=== PATIENT | female | born 1950 | race Caucasian/White ===

== ENCOUNTER 2016-05-31 10:46 | Emergency (ER) | payer MEDICARE ==
[2016-05-31 11:03] VITALS: TEMP 98.2; BMI 27.4
[2016-05-31] MEDS ORDERED: SODIUM CHLORIDE 0.9% 10 ML FLUSH FLUSH PRN (11:08)
[2016-05-31] MEDS ORDERED: NS 1,000 ML IV ONE (11:08)
--- NOTE | 2016-05-31 11:27 | DIRPT ---
CLINICAL DATA: Chest pain and difficulty breathing EXAM: PORTABLE CHEST 1 VIEW COMPARISON: 05/27/2016 FINDINGS: The cardiac shadow is stable. The left-sided pleural effusion has increased slightly in the interval and now lies within the major fissure. Old rib fractures are noted on the right. The right lung is clear. No other focal abnormality is noted. IMPRESSION: Increasing left-sided pleural effusion. Electronically Signed By: Yrn Hernadez M.D. On: 05/31/2016 11:25
[2016-05-31 11:35] LABS: MPV 7.4 fL (7.4-10.4)
[2016-05-31 11:44] LABS: BLOOD UREA NITROGEN 12 MG/DL (7-17); CALC CORRECTED 10.2 MG/DL (8.4-10.2); CALCIUM 9.6 MG/DL (8.4-10.2); CALCULATED OSMOLALITY 270 MOs/Kg (270-290); CHLORIDE 98 mEq/L (98-107); GLUCOSE 109 MG/DL (70-99); SODIUM LEVEL 140 mEq/L (137-146); TOTAL PROTEIN 7.6 G/DL (6.3-8.2)
[2016-05-31 11:47] LABS: ABG Draw Site Right Radial; ALLEN'S TEST PASS; TCO2 30.5 MMOL/L (23-27)
[2016-05-31 12:37] LABS: SEG NEUTROPHIL 72 % (45-76)
--- NOTE | 2016-05-31 12:39 | EDPRACDOC ---
- General Information Chief Complaint: Dyspnea/Resp distress Stated Complaint: RESP Time Seen by Provider: 05/31/16 11:29 Information Source: Patient Home Medications: Home Medications Albuterol/Ipratropium Neb [Duoneb] 3 ml NEB TID 06/06/15 Aspirin [Aspirin EC] 81 mg PO DAILY 06/06/15 Aspirin/Acetaminophen/Caffeine [Excedrin Extra Strength Tab 250/250/65mg] 1 - 2 tab PO Q4H PRN 06/06/15 Atenolol 25 mg PO DAILY 06/06/15 Atorvastatin Calcium [Lipitor] 5 mg PO QHS 06/06/15 Cholecalciferol (Vitamin D3) [Vitamin D3] 1,000 unit PO DAILY 06/06/15 Folic Acid 1 mg PO DAILY 06/06/15 Hydrocodone Bit/Acetaminophen [Hydrocodon-Acetaminophen 5-325] 1 tab PO TID PRN 06/06/15 Ipratropium/Albuterol Sulfate [Combivent Respimat] 2 puff INH RTQ6 06/06/15 Loperamide HCl [Imodium] 2 mg PO DIR PRN 06/06/15 Losartan Potassium 100 mg PO DAILY 06/06/15 Nitroglycerin [Nitrostat] 0.4 mg SL Q5M PRN 06/06/15 Hammond-3 Acid Ethyl Esters [Lovaza] 1 gm PO DAILY 06/06/15 Omeprazole [Prilosec] 20 mg PO DAILY 06/06/15 Tiotropium [place] [Spiriva] 18 mcg INH DAILY 06/06/15 Tussionex [Tussionex Oral Suspension] 5 ml PO BID PRN 06/06/15 Warfarin Sodium [Coumadin] 3 mg PO DAILY 06/06/15 Zolpidem Tartrate [Ambien] 10 mg PO QHS 06/06/15 Azithromycin 250 mg PO DAILY #6 tablet 05/31/16 Levofloxacin [Levaquin] 500 mg PO DAILY 05/31/16 Allergies/Adverse Reactions: Allergies Allergy/AdvReac Type Severity Reaction Status Date / Time No Known Allergies Allergy Verified 06/06/15 19:07 - History of Present Illness HPI: C/o progressive SOB, cant sleep, weakness x 1 week. No change in chronic cough. Dx tues at pcp with pneumonia, given levaquin. No improvement since. Denies cp, N/V/D, chnages in urine, BM. Hx of COPD on Home O2 at 2L PRN at night. Inhalers have not been helping. Med hx = factor V leiden, on warfarin, HTN, HDL. Prior cath 1998, most recent stress test unknown. 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 ARTERIAL THROMBOSIS CAUSING VT.), Hypercholesterolemia Respiratory History: Reports: COPD, Pneumonia. Denies: Pulmonary Embolism (BUT HAD DVT'S 1998 AND 2 ARTERIAL THROMBOSES. [facility] COUMADIN.) GI/ History: Reports: Gastroesophageal Reflux, Diverticulosis (RECTAL BLEEDING 2013-DR. GREY. NEG COLONOSCOPY X3DR. MIKAELA.) Psychological History: Denies: Depression, Substance Use Disorder Systemic History: Reports: Diabetes. Denies: Anemia (BUT HAS FACTOR V LEIDEN. VENOUS/ARTERIAL THROMBOSES. ON COUMADIN.) Surgical History: Reports: Other (Colonoscopy x 3 negative.) - Family Medical History Reports: Hypertension, Diabetes, Cancer (Mother lung. Sister bile duct.), Cardiac Disorders. Denies: Stroke - Social Medical History Smoking Status: Heavy tobacco smoker (5 or more cigarettes/day or daily pipe/ cigar) Social History: Denies: Substance Use Disorder EDM Review of Systems - Review of Systems ROS Negative Except as Marked: Yes All systems reviewed and were negative except as marked Constitutional: Weakness Respiratory: Cough, Shortness of Breath Hematologic: Other (factor V on warfarin) - Physical Exam Constitutional: Alert Oriented to: Time, Person, Place Last recorded Vital Signs: Last Vital Signs Temp 98.2 F 05/31/16 10:57 Pulse 82 05/31/16 12:01 Resp 18 05/31/16 12:01 BP 135/80 05/31/16 12:01 Pulse Ox 96 05/31/16 12:01 Oxygen Pulse Oxygen Saturation 96 O2 Device Nasal Cannula Oxygen Flow Rate 2 Fraction of Inspired Oxygen ( FIO2) - HEENT Head: Normal Eye Exam: negative: Conjunctival Injection, Scleral Icterus Oropharynx: negative: Drooling TMJ: Normal Nose: No Symptoms Reported Neck: Normal - Respiratory/Cardiovascular Respiratory: Rhonchi Cardiovascular: Normal - GI Tenderness: Non tender - Musculoskeletal Back: Normal Extremities: Normal - Integumentary Skin: Normal - Neurologic Mood Description: Normal Thought: Coherent Perception: Normal ED SOB MDM - Results Result Diagrams: 05/31/16 11:15 05/31/16 11:15 Results: WBC 18.3 xk/uL (3.8-10.8) H 05/31/16 11:15 RBC 4.81 xM/uL (4.20-5.40) 05/31/16 11:15 Hgb 13.9 g/dL (12.0-16.0) 05/31/16 11:15 Hct 41.8 % (36-47) 05/31/16 11:15 MCV 87 fL (81-99) 05/31/16 11:15 MCH 29.0 pg (27-32) 05/31/16 11:15 MCHC 33.3 g/dl (33-36) 05/31/16 11:15 RDW 14.4 % (11.5-14.5) 05/31/16 11:15 Plt Count 561 xk/uL (130-400) H 05/31/16 11:15 MPV 7.4 fL (7.4-10.4) 05/31/16 11:15 Puncture Site Right radial 05/31/16 11:40 pH 7.380 pH UNITS (7.35-7.45) 05/31/16 11:40 pCO2 49.0 mmHg (35-45) H 05/31/16 11:40 pO2 77.0 mmHg (80-100) L 05/31/16 11:40 HCO3 29.0 MMOL/L (22-26) H 05/31/16 11:40 Total CO2 30.5 MMOL/L (23-27) H 05/31/16 11:40 Base Excess 3.0 (+/- 2) H 05/31/16 11:40 FiO2 % 2 lpm nc 05/31/16 11:40 Specimen Drawn By Lia 05/31/16 11:40 Sodium 140 mEq/L (137-146) 05/31/16 11:15 Potassium 3.5 mEq/L (3.5-5.1) 05/31/16 11:15 Chloride 98 mEq/L (98-107) 05/31/16 11:15 Carbon Dioxide 30 mMOL/L (22-33) 05/31/16 11:15 Anion Gap 16 mEq/L (8-16) 05/31/16 11:15 BUN 12 MG/DL (7-17) 05/31/16 11:15 Creatinine 0.80 MG/DL (0.52-1.04) 05/31/16 11:15 Estimated GFR (MDRD) > 60 mL/min (>=60) 05/31/16 11:15 Glucose 109 MG/DL (70-99) H 05/31/16 11:15 Calculated Osmolality 270 MOs/Kg (270-290) 05/31/16 11:15 Calcium 9.6 MG/DL (8.4-10.2) 05/31/16 11:15 Corrected Calcium 10.2 MG/DL (8.4-10.2) 05/31/16 11:15 Total Bilirubin 0.7 MG/DL (0.2-1.3) 05/31/16 11:15 AST 23 IU/L (14-36) 05/31/16 11:15 ALT 17 IU/L (9-52) 05/31/16 11:15 Alkaline Phosphatase 98 IU/L (55-165) 05/31/16 11:15 Troponin I 0.01 ng/mL (<.04) 05/31/16 11:15 Hej-V-[id number] Pept 1700 pg/mL (0-900) H 05/31/16 11:15 Total Protein 7.6 G/DL (6.3-8.2) 05/31/16 11:15 Albumin 3.4 G/DL (3.5-5.0) L 05/31/16 11:15 Lab Results 05/31/16 05/31/16 05/31/16 11:40 11:15 11:15 WBC 18.3 H RBC 4.81 Hgb 13.9 Hct 41.8 MCV 87 MCH 29.0 MCHC 33.3 RDW 14.4 Plt Count 561 H MPV 7.4 Puncture Site Right radial pH 7.380 pCO2 49.0 H pO2 77.0 L HCO3 29.0 H Total CO2 30.5 H Base Excess 3.0 H FiO2 % 2 lpm nc Specimen Drawn By Roude Sodium 140 Potassium 3.5 Chloride 98 Carbon Dioxide 30 Anion Gap 16 BUN 12 Creatinine 0.80 Estimated GFR (MDRD) > 60 Glucose 109 H Calculated Osmolality 270 Calcium 9.6 Corrected Calcium 10.2 Total Bilirubin 0.7 AST 23 ALT 17 Alkaline Phosphatase 98 Troponin I 0.01 Bka-[id number]-Dduysoprgre Pept 1700 H Total Protein 7.6 Albumin 3.4 L - EKG EKG #1 EKG Time: 10:54 -: Yes EKG interpreted by me Rate: bpm: 80 Rhythm: NSR, PVCs Block: RBBB ST: Nonsp Comparison: 06/06/15 (NSR) - Diagnostic Imaging Chest Image interpreted by: Radiologist Diagnostic Imaging Comments: EXAM: PORTABLE CHEST 1 VIEW COMPARISON: 05/27/2016 FINDINGS: The cardiac shadow is stable. The left-sided pleural effusion has increased slightly in the interval and now lies within the major fissure. Old rib fractures are noted on the right. The right lung is clear. No other focal abnormality is noted. IMPRESSION: Increasing left-sided pleural effusion. Electronically Signed By: Yrn Hernadez M.D. On: 05/31/2016 11:25 Other Image interpreted by: Radiologist Diagnostic Imaging Comments: EXAM: CT ANGIOGRAPHY CHEST WITH CONTRAST TECHNIQUE: Multidetector CT imaging of the chest was performed using the standard protocol during bolus administration of intravenous contrast. Multiplanar CT image reconstructions and MIPs were obtained to evaluate the vascular anatomy. CONTRAST: 80 cc Isovue 370 IV. COMPARISON: Chest x-ray 05/31/2016. Chest CT 06/06/2015. FINDINGS: No filling defects in the pulmonary arteries to suggest pulmonary emboli. There is moderate loculated left pleural effusion. Airspace disease within the left lower lobe could reflect pneumonia. Posterior airspace disease at the right lung base could reflect atelectasis or early infiltrate. Moderate emphysema. There is cardiomegaly. Moderate-sized hiatal hernia. Coronary artery calcifications in the left anterior descending and circumflex coronary arteries. Aorta tortuous, non aneurysmal. No mediastinal, hilar, or axillary adenopathy. Chest wall soft tissues are unremarkable. Imaging into the upper abdomen shows no acute findings. Low-density diffuse enlargement of the adrenal glands bilaterally compatible with hyperplasia. Review of the MIP images confirms the above findings. IMPRESSION: No evidence of pulmonary embolus. Moderate loculated left pleural effusion with airspace disease in the left lower lobe concerning for pneumonia. Patchy airspace disease also in the posterior medial right lower lobe could represent atelectasis or pneumonia. Coronary artery disease. Moderate-sized hiatal hernia. Electronically Signed By: Yossi Rolon M.D. On: 05/31/2016 14:51 Decision Time to Discharge: 14:57 - Departure Disposition: Home Condition: Stable Final Diagnosis: Pneumonia Qualifiers: Pneumonia type: due to unspecified organism Laterality: unspecified laterality Lung location: unspecified part of lung Qualified Code(s): J18.9 - Pneumonia, unspecified organism Instructions: Bacterial Pneumonia (ED) Education/Counseling Given To: Patient, Family Member Education/Counseling Given Regarding: Diagnosis, Treatment, Prognosis, Follow Up Referrals: Jada Main DO [Primary Care Provider] - One Week Prescriptions: New Azithromycin 250 mg PO DAILY #6 tablet No Action Tiotropium [place] [Spiriva] 18 mcg INH DAILY Omeprazole [Prilosec] 20 mg PO DAILY Ipratropium/Albuterol Sulfate [Combivent Respimat] 2 puff INH RTQ6 Zolpidem Tartrate [Ambien] 10 mg PO QHS Losartan Potassium 100 mg PO DAILY Folic Acid 1 mg PO DAILY Atorvastatin Calcium [Lipitor] 5 mg PO QHS Albuterol/Ipratropium Neb [Duoneb] 3 ml NEB TID Tussionex [Tussionex Oral Suspension] 5 ml PO BID PRN PRN Reason: Cough Aspirin/Acetaminophen/Caffeine [Excedrin Extra Strength Tab 250/250/65mg] 1 - 2 tab PO Q4H PRN PRN Reason: Headache Loperamide HCl [Imodium] 2 mg PO DIR PRN PRN Reason: Diarrhea Hydrocodone Bit/Acetaminophen [Hydrocodon-Acetaminophen 5-325] 1 tab PO TID PRN PRN Reason: Pain Atenolol 25 mg PO DAILY Aspirin [Aspirin EC] 81 mg PO DAILY Cholecalciferol (Vitamin D3) [Vitamin D3] 1,000 unit PO DAILY Hammond-3 Acid Ethyl Esters [Lovaza] 1 gm PO DAILY Warfarin Sodium [Coumadin] 3 mg PO DAILY Nitroglycerin [Nitrostat] 0.4 mg SL Q5M PRN PRN Reason: Chest Pain Or Discomfort Levofloxacin [Levaquin] 500 mg PO DAILY Additional Instructions: Follow up with primary care. Stop taking warfarin for 2 days as INR is elevated. Take azithromycin as directed. Return to ED for any new or worsening symptoms.
[2016-05-31 13:05] LABS: PARTIAL THROMB. TIME 92.7 SEC (22-35); PT-INR 10.9
[2016-05-31] MEDS ORDERED: Pharmacy Review for Metformin - IV Contrast Given SCH (14:00)
--- NOTE | 2016-05-31 14:54 | DIRPT ---
CLINICAL DATA: Shortness of breath for 1 week. Being treated for pneumonia. EXAM: CT ANGIOGRAPHY CHEST WITH CONTRAST TECHNIQUE: Multidetector CT imaging of the chest was performed using the standard protocol during bolus administration of intravenous contrast. Multiplanar CT image reconstructions and MIPs were obtained to evaluate the vascular anatomy. CONTRAST: 80 cc Isovue 370 IV. COMPARISON: Chest x-ray 05/31/2016. Chest CT 06/06/2015. FINDINGS: No filling defects in the pulmonary arteries to suggest pulmonary emboli. There is moderate loculated left pleural effusion. Airspace disease within the left lower lobe could reflect pneumonia. Posterior airspace disease at the right lung base could reflect atelectasis or early infiltrate. Moderate emphysema. There is cardiomegaly. Moderate-sized hiatal hernia. Coronary artery calcifications in the left anterior descending and circumflex coronary arteries. Aorta tortuous, non aneurysmal. No mediastinal, hilar, or axillary adenopathy. Chest wall soft tissues are unremarkable. Imaging into the upper abdomen shows no acute findings. Low-density diffuse enlargement of the adrenal glands bilaterally compatible with hyperplasia. Review of the MIP images confirms the above findings. IMPRESSION: No evidence of pulmonary embolus. Moderate loculated left pleural effusion with airspace disease in the left lower lobe concerning for pneumonia. Patchy airspace disease also in the posterior medial right lower lobe could represent atelectasis or pneumonia. Coronary artery disease. Moderate-sized hiatal hernia. Electronically Signed By: Yossi Rolon M.D. On: 05/31/2016 14:51
[2016-05-31 15:10] VITALS: PULSE 87
[2016-05-31 15:46] VITALS: BP 146/78
== END 2016-05-31 15:40 | disposition home or self-care (01) ==
LOC: ED 10:46
DX: J18.9 Pneumonia, unspecified organism (principal)
CPT/HCPCS: 36415; 36600; 71010; 71275; 80053; 82803; 83880; 84484; 85007; 85027; 85379; 85610; 85730; 93005; 94664; 96360; 96361; 99285; A9698